=== PATIENT | female | born 1995 ===

== ENCOUNTER 2021-02-02 03:00 | Inpatient (IN) | payer MEDICAID, OTHER ==
[2021-02-02] MEDS ORDERED: fentaNYL 100 MCG/2 ML INJ IV PRN (05:07)
[2021-02-02] MEDS ORDERED: MINERAL OIL 30 ML ORAL LIQD PO PRN (05:07)
[2021-02-02] MEDS ORDERED: LIDOCAINE (2%) 20 MG/1 ML VIAL 20 ML MDV INFILTRATI ONE ×2 (05:07→08:48)
[2021-02-02] MEDS ORDERED: TERBUTALINE 1 MG/1 ML INJ SUB-Q PRN (05:07)
[2021-02-02] MEDS ORDERED: ePHEDrine SULFATE 50 MG/1 ML INJ IV PRN (05:07)
[2021-02-02] MEDS ORDERED: BUTORPHANOL 2 MG/1 ML INJ IV PRN (05:07)
[2021-02-02] MEDS ORDERED: LACTATED RINGERS 1,000 ML IV SCH (05:15)
[2021-02-02] MEDS ORDERED: OXYTOCIN DRIP 30 UNITS/500 ML BAG IV SCH ×2 (06:00)
[2021-02-02 06:13] LABS: Hematocrit 34.7 % (30.3-42.9); Hemoglobin 11.3 gm/dl (10.1-14.3); Mean Corpuscular HGB Conc 33 % (30-34); Mean Corpuscular Volume 87 fl (79-97); Red Blood Count 3.99 M/mm3 (3.65-5.03); Red Cell Distribution Width 15.1 % (13.2-15.2)
[2021-02-02 06:23] LABS: Platelet Count 188 K/mm3 (140-440)
--- NOTE | 2021-02-02 08:13 | History and Physical Report ---
History of Present Illness Date of examination: 02/02/21 Date of admission: 02/02/21 05:07 Chief complaint: c/o uc x several hours History of present illness: 25 y/o presented to triage with c/o uc times several hours. She denied VB or LOF and admitted to active FM. Pt started her pnc @ [facility] at 8.5 wks. She had a uti and dev pylo otherwise her preg has been uneventful. Medical hx of anemia. Pt's surgical/social/family hx is unremarkab le. Pt was found to be in labor and was admitted to L&D for delivery. GBS is neg. Past History Past Medical History: other (uti with pylo, anemia) Past Surgical History: no surgical history Family/Genetic History: none Social history: no significant social history - Obstetrical History Expected Date of Delivery: 02/03/21 Actual Gestation: 39 Week(s) 6 Day(s) : 2 Para: 1 Hx # Term Pregnancies: 1 Number of Living Children: 1 Medications and Allergies Allergies Allergy/AdvReac Type Severity Reaction Status Date / Time No Known Allergies Allergy Unverified 02/02/21 03:41 Home Medications Medication Instructions Recorded Confirmed Last Taken Type Multivitamin Tablet 1 tab PO DAILY 02/02/21 02/02/21 02/01/21 21:00 History 2100 Active Meds: Active Medications Butorphanol Tartrate (Butorphanol 2 Mg/1 Ml Inj) 2 mg IV Q2H PRN PRN Reason: Pain , Severe (7-10) Ephedrine Sulfate (Ephedrine Sulfate 50 Mg/1 Ml Inj) 10 mg IV Q2M PRN PRN Reason: Hypotension Fentanyl (Fentanyl 100 Mcg/2 Ml Inj) 100 mcg IV Q2H PRN PRN Reason: Pain,Severe (7-10) LABOR PAIN Last Admin: 02/02/21 05:27 Dose: 100 mcg Documented by: Oxytocin/Sodium Chloride (Pitocin/Ns 30 Unit/500ml) 30 units in 500 mls @ 2 mls/hr IV TITR MARITA; Protocol Lactated Ringer's (Lactated Ringers) 1,000 mls @ 125 mls/hr IV DIRECT MARITA Last Admin: 02/02/21 05:31 Dose: 125 mls/hr Documented by: Oxytocin/Sodium Chloride (Pitocin/Ns 30 Unit/500ml) 30 units in 500 mls @ 40 mls/hr IV TITR MARITA; Protocol Mineral Oil (Mineral Oil 30 Ml Oral Liqd) 30 ml PO QHS PRN PRN Reason: Constipation Terbutaline Sulfate (Terbutaline 1 Mg/1 Ml Inj) 0.25 mg SUB-Q ONCE PRN PRN Reason: Hyperstimulation/Hypertonicity Review of Systems All systems: negative Eyes: deferred Ears, nose, mouth and throat: deferred Breasts: normal Genitourinary: normal appearance Rectal Exam: deferred - Vital Signs Vital signs: Vital Signs Pulse BP 80 146/88 02/02/21 03:47 02/02/21 03:47 Temp Pulse Resp BP Pulse Ox 91 H 130/100 100 02/02/21 08:00 02/02/21 08:00 02/02/21 07:59 - Physical Exam Breasts: Positive: normal Abdomen: Positive: normal appearance, soft, normal bowel sounds, other (gravid) Genitourinary (Female): Positive: normal external genitalia, normal perenium Vulva: both: normal Vagina: Positive: normal moisture Uterus: Positive: enlarged, normal contour, other (gravid) Adnexa: both: normal Anus/Rectum: Positive: normal perianal skin Extremities: Positive: normal - Obstetrical FHR: auscultation normal Cervical Dilatation: 5 Cervical Effacement Percentage: 50 station: -3 Uterine Contraction Pattern: Regular Uterine Tone Measurement Phase: Resting Uterine Contraction Intensity: Moderate Results Result Diagrams: 02/02/21 04:47 All other labs normal. Assessment and Plan A: IUP@ 39.6 wks Hx uti with pylo- treated GBS neg P: Admit to L&D Continuous monitoring Pain med/Epidural prn Anticipate - Patient Problems (1) Supervision of normal IUP (intrauterine ) in multigravida Current Visit: Yes Status: Acute
[2021-02-02] MEDS ORDERED: LANOLIN/ZINC/DIMETHICONE (LANSINOH) 7 GM TP PRN (11:05)
[2021-02-02] MEDS ORDERED: WITCH HAZEL/ GLYCERIN PAD TP PRN (11:05)
[2021-02-02] MEDS ORDERED: oxyCODONE /ACETAMINOPHEN 5-325MG TAB ONE (11:06)
--- NOTE | 2021-02-02 11:19 | Procedure Note ---
OB Delivery Note - Delivery Date of Delivery: 02/02/21 Surgeon: FLAVIA GARRIDO Estimated blood loss: other (263 cc) - Vaginal Delivery presentation: vertex Delivery position: OA Intrapartum events: shoulder dystocia Delivery induction: none Delivery monitor: external FHT, external uterine Route of delivery: Delivery placenta: spontaneous Delivery cord: 3 umbilical vessels Episiotomy: none Delivery laceration: none Anesthesia: none Delivery comments: Assumed care of patient at 10:30 AM. Spontaneous vaginal delivery at 10:37 AM of liveborn female weighing 6 lb. 15 oz. over intact perineum with apgars of 8/8. No anesthesia. Tight nuchal cord times 1, manually reduced on perineum. Right anterior shoulder dystocia, resolved with McRobert's maneuver, rotation of shoulders to oblique, suprapubic pressure, and delivery of posterior shoulder. Head to body delivery time 30 seconds. Baby placed skin to skin with mom immediately after delivery and suctioned with bulb syringe. Spontaneous cry and respirations. 3 vessel cord double clamped and cut. Baby taken to radiant warmer for evaluation by NICU. Baby moving all extremities well. Spontaneous delivery of intact placenta and membranes by carr mechanism at 10:49 AM. EBL 263 cc. Pitocin to IV fluids. Fundus firm and midline. Vaginal sweep negative. No lacerations noted. Sponge count correct. Mother and baby stable. Preeclamptic labs done as several elevated blood pressures noted on review of BPs (may have been pain related as BPs are coming down now). Consulted with re: elevated blood pressures.
[2021-02-02 13:46] LABS: Alanine Aminotransferase 7 units/L (7-56); Albumin 3.2 g/dL (3.9-5); Blood Urea Nitrogen 11 mg/dL (7-17); Hemolysis Index 2; Uric Acid 5.4 mg/dL (3.5-7.6)
[2021-02-02 13:47] LABS: BUN/Creatinine Ratio 28
[2021-02-02 16:08] LABS: Bilirubin,Urine NEG (Negative); Blood,Urine LG (Negative); Color,Urine Yellow (Yellow); Urobilinogen,Urine < 2.0 mg/dL (<2.0)
[2021-02-02 16:09] LABS: RBC,Urine > 182.0 /HPF (0.0-6.0)
[2021-02-02] MEDS ORDERED: cefTRIAXone/NS 1 GM/50 ML 1 GM/50 ML BAG IV SCH (23:45)
[2021-02-03] MEDS: oxyCODONE /ACETAMINOPHEN 5-325MG TAB PO PRN ×2 (00:36→10:50)
[2021-02-03 00:41] LABS: Hematocrit 27.8 % (30.3-42.9); Hemoglobin 9.3 gm/dl (10.1-14.3)
--- NOTE | 2021-02-03 05:27 | Progress Note ---
Assessment and Plan A: day 1 S/P . Anemia. P: Supplement with iron. Anticipate discharge home tomorrow if patient continues to do well. Subjective - Subjective Date of service: 02/03/21 Principal diagnosis: day 1 S/P Patient reports: appetite normal, voiding normally, pain well controlled, flatus, ambulating normally, no dizzy ambulation, no nauseated [place]: doing well Objective - Vital Signs Latest vital signs: Vital Signs Temp Pulse Resp BP BP Pulse Ox 02/03/21 00:54 98.2 F 67 20 111/68 97 02/02/21 17:28 98.3 F 70 18 110/60 97 02/02/21 13:47 98 F 71 18 117/75 97 02/02/21 12:18 77 127/72 02/02/21 12:13 75 129/73 02/02/21 12:08 78 119/73 02/02/21 12:03 72 128/83 02/02/21 11:58 75 132/84 02/02/21 11:53 77 130/83 02/02/21 11:48 79 134/83 02/02/21 11:43 80 135/81 02/02/21 11:38 75 127/79 02/02/21 11:33 75 127/80 02/02/21 11:28 75 130/82 02/02/21 11:23 78 129/81 02/02/21 11:18 78 128/74 02/02/21 11:13 82 135/91 02/02/21 11:08 83 137/85 02/02/21 11:04 81 100 02/02/21 11:03 86 137/89 02/02/21 10:59 90 123/87 100 02/02/21 10:54 91 H 100 02/02/21 10:49 97 H 100 02/02/21 10:44 92 H 133/68 100 02/02/21 10:39 93 H 99 02/02/21 10:38 112 H 155/84 02/02/21 10:36 162 H 81 L 02/02/21 10:34 139 H 100 02/02/21 10:31 121 H 158/88 02/02/21 10:29 117 H 99 02/02/21 10:24 92 H 99 02/02/21 10:19 89 99 05 10:18 88 172/90 05 10:16 90 194/106 05 10:14 91 H 97 05 10:09 92 H 100 02/02/21 10:04 84 100 05 09:59 84 98 05 09:54 89 97 05 09:49 87 100 05 09:47 94 H 139/95 05 09:44 87 98 05 09:39 81 99 05 09:34 85 99 05 09:31 87 150/86 05 09:29 83 100 05 09:24 87 99 05 09:19 82 98 02/02/21 09:16 86 137/89 05 09:14 90 99 02/02/21 09:09 86 99 02/02/21 09:04 90 99 05 09:01 85 124/89 02/02/21 08:59 90 98 05 08:54 90 99 02/02/21 08:49 93 H 99 05 08:47 88 155/96 05 08:44 85 98 05 08:39 88 98 02/02/21 08:34 80 99 05 08:33 87 168/99 05 08:29 88 98 05 08:24 89 97 02/02/21 08:19 77 99 05 08:17 82 151/94 05 08:14 75 100 05 08:09 96 H 100 05 08:04 92 H 99 05 08:00 91 H 130/100 05 07:59 90 100 05 07:54 100 H 98 05 07:49 83 98 05 07:44 78 100 05 07:39 82 98 05 07:34 84 99 05 07:30 82 180/95 0521 07:29 78 100 0521 07:24 88 100 05 07:23 84 190/93 05/21 07:21 86 186/103 02/02/21 07:19 91 H 100 02/02/21 07:14 83 100 02/02/21 07:09 83 144/93 99 02/02/21 07:04 79 99 02/02/21 06:59 77 99 02/02/21 06:54 83 98 02/02/21 06:49 72 99 02/02/21 06:44 81 98 02/02/21 06:39 83 98 02/02/21 06:32 75 148/81 02/02/21 06:31 74 99 02/02/21 06:26 74 100 02/02/21 06:21 85 100 02/02/21 06:16 70 99 02/02/21 06:11 69 98 02/02/21 06:06 70 99 02/02/21 06:03 71 141/94 02/02/21 06:01 94 H 99 02/02/21 06:00 81 139/101 02/02/21 05:56 78 99 02/02/21 05:51 81 98 02/02/21 05:46 79 98 02/02/21 05:45 86 93 02/02/21 05:41 81 99 02/02/21 05:36 86 97 02/02/21 05:31 87 96 02/02/21 05:26 80 100 Intake and Output 02/02/21 02/02/21 02/03/21 15:59 23:59 07:59 Intake Total 400 Output Total 700 Balance -300 Intake: Oral 300 Intake, Free Water 100 Output: Urine 700 Void 700 Other: Total, Intake Amount 300 Total, Output Amount 400 # Voids Void 3 1 - Exam Cardiovascular: Present: Regular rate Lungs: Present: Clear to auscultation Abdomen: Present: normal appearance, soft, normal bowel sounds. Absent: distention, tenderness, guarding, rigidity Uterus: Present: normal, firm, fundal height below umbilicus. Absent: bogginess, tenderness Extremities: Present: normal. Absent: tenderness, edema - Labs Labs: Abnormal lab results 02/02/21 02/02/21 02/03/21 Range/Units 12:36 15:40 00:20 Hgb 9.3 L (10.1-14.3) gm/dl Hct 27.8 L D (30.3-42.9) % Sodium 135 L (137-145) mmol/L Carbon Dioxide 18 L (22-30) mmol/L Creatinine 0.4 L (0.6-1.2) mg/dL Calcium 8.0 L (8.4-10.2) mg/dL Alkaline Phosphatase 140 H (35-129) units/L Lactate Dehydrogenase 208 H (91-180) units/L Total Protein 6.2 L (6.3-8.2) g/dL Albumin 3.2 L (3.9-5) g/dL Urine WBC (Auto) 18.0 H (0.0-6.0) /HPF
[2021-02-03] MEDS: FERROUS SULFATE 325 MG TAB PO SCH ×2 (10:49→22:22)
[2021-02-04 09:16] VITALS: BP 117/62
--- NOTE | 2021-02-04 09:38 | Progress Note ---
Assessment and Plan A: day 2 S/P . P: Discharge patient home today. Discussed with patient discharge instructions and warning signs. Advised patient to continue taking vitamins at home. Advised patient to avoid intercourse, lifting, heavy housework. Advised patient to follow up at [facility] in 6 weeks. Patient voiced understanding of all instructions. Subjective - Subjective Date of service: 02/04/21 Principal diagnosis: day 2 S/P Interval history: Doing well. No complaints. Patient desires discharge home today. Urine culture showed no growth and patient denies any urinary symptoms. Patient reports: appetite normal, voiding normally, pain well controlled, flatus, ambulating normally, no dizzy ambulation, no nauseated [place]: doing well Objective - Vital Signs Latest vital signs: Vital Signs Temp Pulse Resp BP Pulse Ox 02/04/21 08:10 98.6 F 74 20 117/62 100 02/04/21 00:00 98.6 F 74 20 120/63 98 02/03/21 17:39 98.0 F 68 20 114/72 97 02/03/21 10:50 20 Intake and Output 02/03/21 02/04/21 02/04/21 23:59 07:59 15:59 Intake Total 240 Balance 240 Intake: Oral 240 Other: Total, Intake Amount 120 # Voids Void 1 - Exam Cardiovascular: Present: Regular rate Lungs: Present: Clear to auscultation Abdomen: Present: normal appearance, soft. Absent: distention, tenderness, guarding, rigidity Uterus: Present: normal, firm, fundal height below umbilicus. Absent: bogginess, tenderness Extremities: Present: normal. Absent: tenderness, edema
--- NOTE | 2021-02-04 09:43 | Discharge Summary ---
Providers - Providers Date of Admission: 02/02/21 05:07 Date of discharge: 02/04/21 Attending physician: CESAR CURRY MD Primary care physician: CESAR CURRY MD Hospitalization Reason for admission: active labor Delivery: Episiotomy: none Laceration: none Other procedures: none complications: none Discharge diagnosis: IUP at term delivered baby: female Pertinent studies: Labs Hospital course: Stable hospital course Condition at discharge: Good Disposition: DC-01 TO HOME OR SELFCARE - Discharge Diagnoses (1) Term delivered Status: Acute Plan - Provider Discharge Summary Activity: routine, no sex for 6 weeks, no heavy lifting 4 weeks, no strenuous exercise Diet: routine Instructions: routine Additional instructions: Follow up at [facility] in 1 week for BP check and in 6 weeks for routine [facility] exam. Continue taking your vitamins at home. Call your doctor immediately for: * Fever > 100.5 * Heavy vaginal bleeding ( >1 pad per hour) * Severe persistent headache * Shortness of breath * Reddened, hot, painful area to leg or breast - Follow up plan Follow up: CESAR CURRY MD [Primary Care Provider] - 7 Days
== END 2021-02-04 11:46 | disposition home or self-care (01) | DRG 807 ==
LOC: TRG 03:00 → APU 03:01 → LD 04:38 → TRG 05:07 → OB 13:05
PROC: 10E0XZZ Delivery of Products of Conception, External Approach (ICD-10-PCS; principal; 2021-02-02)
DX: O66.0 Obstructed labor due to shoulder dystocia (principal); Z37.0 Single live birth; Z20.822 Contact with and (suspected) exposure to COVID-19; O99.02 Anemia complicating childbirth; Z79.899 Other long term (current) drug therapy; Z87.440 Personal history of urinary (tract) infections; Z3A.39 39 weeks gestation of pregnancy
CPT/HCPCS: 36415; 59025; 80053; 81001; 83615; 84550; 85014; 85018; 85027; 86592; 86850; 86900; 86901; 87086; 96360; G0378; J0696; J3010; J7120; U0003